=== PATIENT | male | born 1990 | race American Indian/Alaskan Native ===

== ENCOUNTER 2018-03-08 15:09 | Inpatient (IN) | payer OTHER ==
[2018-03-08] MEDS ORDERED: TYLENOL ONE (15:18)
[2018-03-08] MEDS ORDERED: TYLENOL PO ONE (15:19)
--- NOTE | 2018-03-08 17:30 | Emergency Department Report ---
ED Fever HPI - General Chief Complaint: Fever Stated Complaint: HTN, R FOOT PAIN Time Seen by Provider: 03/08/18 17:10 Source: patient Exam Limitations: no limitations - History of Present Illness Initial Comments: This is a 27-year-old -[place] male who presents with fever and body aches that started last night. Patient reports waking up this morning going directly to urgent care around 12:00 today and began seeing directly here for evaluation of blood sugar and blood pressure. Patient reports while in urgent care he was told his blood sugar was too low and his blood pressure elevated. They advised him to follow-up in the emergency room. Patient admits to not eating breakfast this morning because he was nauseous and vomiting last night. Reports symptoms started last night around 2129 with shaking activity. She increase water intake and started drinking Gatorade with no improvement of symptoms. Today he is feverish and fatigued. Denies nausea or vomiting, chest pain, shortness of breath, sore throat, sinus pressure. Timing/Duration: yesterday Fever Severity/Quality: greater than 102 F Fever Therapy CLINICAL EDUCATION COORDINATOR: none Associated Symptoms: muscle aches (generalized body aches). denies: abdominal pain, chest pain, confusion, cough, diaphoresis, headache, nausea/vomiting, rash , shortness of breath, sore throat, stiff neck, syncope, weakness ED Review of Systems ROS: Stated complaint: HTN, R FOOT PAIN Other details as noted in HPI Constitutional: chills, fever, malaise. denies: weakness Respiratory: denies: cough, shortness of breath, wheezing Cardiovascular: denies: chest pain, palpitations Gastrointestinal: denies: abdominal pain, nausea, diarrhea Genitourinary: denies: urgency, dysuria Musculoskeletal: myalgia (generalized body aches). denies: back pain, joint swelling, arthralgia Neurological: denies: headache, weakness, numbness, paresthesias Psychiatric: denies: anxiety, depression ED Past Medical Hx - Past Medical History Previous Medical History?: No - Surgical History Past Surgical History?: No - Social History Smoking Status: Never Smoker Substance Use Type: Alcohol ED Physical Exam - General Limitations: No Limitations General appearance: alert, in no apparent distress, obese - ENT ENT exam: Present: mucous membranes moist, normal external ear exam, other ( turbinates mildly congested) - Neck Neck exam: Present: normal inspection, full ROM. Absent: tenderness, meningismus, lymphadenopathy, thyromegaly - Respiratory Respiratory exam: Present: normal lung sounds bilaterally. Absent: respiratory distress - Cardiovascular Cardiovascular Exam: Present: regular rate, normal rhythm. Absent: systolic murmur, diastolic murmur, rubs, gallop - GI/Abdominal GI/Abdominal exam: Present: soft, normal bowel sounds. Absent: organomegaly, mass - Back Exam Back exam: Present: normal inspection. Absent: CVA tenderness (R), CVA tenderness (L) - Neurological Exam Neurological exam: Present: alert, oriented X3 - Psychiatric Psychiatric exam: Present: normal affect, normal mood - Skin Skin exam: Present: warm, dry, intact, normal color. Absent: rash ED Course Vital Signs 03/08/18 15:16 Temperature 102.2 F H Pulse Rate 81 Respiratory 20 Rate Blood Pressure 122/69 O2 Sat by Pulse 96 Oximetry ED Medical Decision Making - Lab Data Result diagrams: 03/08/18 17:34 03/08/18 17:34 - Medical Decision Making This is a 27 y.o. male presents with a fever and generalized body aches that started last night. Patient is stable and was examined by me. Temperature elevated, patient given Tylenol 975 mg by mouth once while in ER. Obtain CBC and CMP. WBC 21. Ordered chest x-ray, mono, and urinalysis. Labs are pending. Chart signed over to RR. Wendy Critical care attestation.: If time is entered above; I have spent that time in minutes in the direct care of this critically ill patient, excluding procedure time. ED Disposition Clinical Impression: Fever Qualifiers: Fever type: unspecified Qualified Code(s): R50.9 - Fever, unspecified Disposition: - MED SCREENING EXAM-CONT Is pt being admited?: No Condition: Stable Referrals: PRIMARY CARE, [Primary Care Provider] - 3-5 Days
[2018-03-08 17:46] LABS: Hematocrit 42.5 % (35.5-45.6); Hemoglobin 14.5 gm/dl (11.8-15.2); Mean Corpuscular HGB Conc 34 % (32-34); Mean Corpuscular Hemoglobin 32 pg (28-32); Mean Corpuscular Volume 93 fl (84-94); Platelet Count 184 K/mm3 (140-440); Red Blood Count 4.56 M/mm3 (3.65-5.03); Red Cell Distribution Width 12.9 % (13.2-15.2)
[2018-03-08 18:08] LABS: Alanine Aminotransferase 15 units/L (7-56); Albumin 3.9 g/dL (3.9-5); BUN/Creatinine Ratio 10; Blood Urea Nitrogen 13 mg/dL (9-20); Calcium 9.1 mg/dL (8.4-10.2); Hemolysis Index 7
[2018-03-08 19:01] LABS: Bilirubin,Urine NEG (Negative); Blood,Urine SM (Negative); Color,Urine Yellow (Yellow); Mucus,Urine FEW /HPF; Protein,Urine <15 mg/dL mg/dL (Negative); Urobilinogen,Urine < 2.0 mg/dL (<2.0)
[2018-03-08 19:32] LABS: Hematocrit 42.7 % (35.5-45.6); Hemoglobin 14.3 gm/dl (11.8-15.2); Mean Corpuscular HGB Conc 33 % (32-34); Mean Corpuscular Hemoglobin 32 pg (28-32); Mean Corpuscular Volume 95 fl (84-94); Platelet Count 184 K/mm3 (140-440); Red Blood Count 4.52 M/mm3 (3.65-5.03); Red Cell Distribution Width 12.8 % (13.2-15.2)
[2018-03-08 20:14] LABS: Basophils % (Manual) 0 % (0.0-1.8); Total Cells Counted 100
[2018-03-08 20:15] LABS: Band Neutrophils # (Manual) 1.9 K/mm3; Eosinophils % (Manual) 0 % (0.0-4.3); RBC Morphology Normal
--- NOTE | 2018-03-08 20:43 | XRay Report ---
FINAL REPORT PROCEDURE: XR CHEST ROUTINE 2V TECHNIQUE: PA and lateral chest radiographs were obtained. CPT 57389 HISTORY: fever COMPARISON: No prior studies are available for comparison. FINDINGS: Heart: Normal. Mediastinum/Vessels: Normal. Lungs/Pleural space: Normal. Bony thorax: No acute osseous abnormality. Other: IMPRESSION: Normal examination.
[2018-03-08] MEDS ORDERED: MOTRIN ONE (21:08)
[2018-03-08] MEDS ORDERED: MOTRIN PO ONE (21:09)
[2018-03-08] MEDS ORDERED: CLEOCIN 600 MG/50 mL 600 MG/50 ML BAG IV ONE (21:55)
[2018-03-08] MEDS ORDERED: NACL 0.9% 1000 ML 1,000 ML IV ONE (21:55)
--- NOTE | 2018-03-08 22:57 | History and Physical Report ---
History of Present Illness Date of admission: 03/08/18 22:08 Chief complaint: Nausea dizziness fever chills and body aches for one day History of present illness: 27-year-old obese -[place] male with no known medical conditions seen in the ED with above complaints, was noted to have a fever of 102, elevated WBC count and swelling pain and tenderness in the right leg and is being admitted for further management of cellulitis of the right leg He is alert and oriented. He denies any injury Past History Past Medical History: No medical history Past Surgical History: No surgical history Social history: no significant social history Family history: diabetes, hypertension Medications and Allergies Allergies Allergy/AdvReac Type Severity Reaction Status Date / Time No Known Allergies Allergy Unverified 03/08/18 15:15 Home Medications Medication Instructions Recorded Confirmed Last Taken Type Ibuprofen [Motrin] 800 mg PO Q8HR PRN #20 tablet 03/08/18 Unknown Rx Active Meds: Active Medications Sodium Chloride (Nacl 0.9% 1000 Ml) 1,000 mls @ 999 mls/hr IV BOLUS ONE Stop: 03/08/18 22:55 Last Admin: 03/08/18 22:29 Dose: 999 mls/hr Clindamycin HCl (Cleocin 600 Mg/50 Ml) 600 mg in 50 mls @ 100 mls/hr IV Q8HR [facility]; Protocol Review of Systems Constitutional: fever, chills, other (body aches), no weight loss, no fatigue, no weakness Ears, nose, mouth and throat: no ear pain, no ear discharge, no nasal congestion , no sore throat, no headache Cardiovascular: no chest pain, no palpitations, no syncope, no shortness of breath, no high blood pressure Respiratory: no cough, no shortness of breath, no congestion Gastrointestinal: nausea, no abdominal pain, no vomiting, no diarrhea, no constipation, no melena Genitourinary Male: no dysuria, no hematuria, no urinary frequency Rectal: no pain Musculoskeletal: no neck stiffness, no neck pain, no low back pain Integumentary: redness (right ankle and distal part of right leg), no rash Neurological: no head injury, no seizures, no syncope Psychiatric: no anxiety, no depression Endocrine: no excessive thirst, no polyuria Exam - Constitutional Vitals: Temp Pulse Resp BP Pulse Ox 98.9 F 98 H 18 121/70 100 03/08/18 22:19 03/08/18 20:53 03/08/18 21:12 03/08/18 20:53 03/08/18 20:53 General appearance: Present: no acute distress, well-nourished, obese - EENT Eyes: Present: PERRL, EOM intact ENT: hearing intact, clear oral mucosa - Neck Neck: Present: supple, normal ROM. Absent: masses or JVD - Respiratory Respiratory effort: normal Respiratory: bilateral: CTA - Cardiovascular Rhythm: regular Heart Sounds: Present: S1 & S2 - Extremities Extremity abnormal: edema (of right leg distally and over the right ankle), erythema, tenderness Peripheral Pulses: within normal limits - Abdominal General gastrointestinal: Present: soft, non-tender. Absent: hepatomegaly, splenomegaly Male genitourinary: Present: deferred - Rectal Rectal Exam: deferred - Integumentary Integumentary: Present: warm, erythema (right ankle and distal part of right leg ) - Musculoskeletal Musculoskeletal: strength equal bilaterally - Psychiatric Psychiatric: appropriate mood/affect - Neurologic Neurologic: CNII-XII intact, no focal deficits, moves all extremities Results - Labs CBC & Chem 7: 03/08/18 19:13 03/08/18 17:34 Labs: Abnormal lab results 03/08/18 03/08/18 03/08/18 Range/Units 17:34 17:34 19:13 WBC 21.7 H (4.5-11.0) K/mm3 MCV (84-94) fl RDW 12.9 L (13.2-15.2) % Seg Neuts % (Manual) (40.0-70.0) % Lymphocytes % (Manual) (13.4-35.0) % Seg Neutrophils # Man (1.8-7.7) K/mm3 Monocytes # (Manual) (0.0-0.8) K/mm3 Sodium 134 L (137-145) mmol/L Chloride 95.2 L (98-107) mmol/L Glucose 111 H (75-100) mg/dL Total Creatine Kinase 276 H (55-170) units/L 03/08/18 Range/Units 19:13 WBC 19.2 H (4.5-11.0) K/mm3 MCV 95 H (84-94) fl RDW 12.8 L (13.2-15.2) % Seg Neuts % (Manual) 76.0 H (40.0-70.0) % Lymphocytes % (Manual) 8.0 L (13.4-35.0) % Seg Neutrophils # Man 14.6 H (1.8-7.7) K/mm3 Monocytes # (Manual) 1.2 H (0.0-0.8) K/mm3 Sodium (137-145) mmol/L Chloride (98-107) mmol/L Glucose (75-100) mg/dL Total Creatine Kinase (55-170) units/L Assessment and Plan - Patient Problems (1) Cellulitis of right lower leg Current Visit: Yes Status: Acute Plan to address problem: Blood cultures were done in the ED Started on IV antibiotics with clindamycin No evidence of sepsis NSAIDs (2) Neutrophilic leukocytosis Current Visit: Yes Status: Acute Plan to address problem: Secondary to cellulitis We will monitor (3) Morbid obesity with BMI of 40.0-44.9, adult Current Visit: Yes Status: Chronic Plan to address problem: Due to excess calories Counseling done (4) Fever Current Visit: Yes Status: Acute Qualifiers: Fever type: unspecified Qualified Code(s): R50.9 - Fever, unspecified Plan to address problem: Secondary to cellulitis Acetaminophen as needed
[2018-03-09] MEDS ORDERED: VANCOMYCIN 1,750 MG in NACL 0.9% 500 ML 500 ML IV SCH (02:00)
[2018-03-09] MEDS: CLEOCIN 600 MG/50 mL 600 MG/50 ML BAG IV SCH ×2 (05:55→13:06)
[2018-03-09] MEDS: PEPCID PO SCH ×2 (09:37→23:09)
--- NOTE | 2018-03-09 10:09 | Progress Note ---
Assessment and Plan Assessment and plan: --Lower extremity cellulitis Vancomycin, Zosyn, follow cultures, elevate the limb Lower extremity venous Doppler, negative for DVT X-ray right ankle no abnormality noted --Febrile illness; secondary to sepsis Antipyretics, continue antibiotics --Morbid obesity; counseling diet modification and exercise as tolerated And weight reduction when medically stable History Interval history: Patient seen and examined medical records reviewed Admitted with fever and right lower extremity swelling On empiric antibiotics Patient denies any trauma Alert awake oriented 3 Vital signs reviewed Hospitalist Physical - Constitutional Vitals: Temp Pulse Resp BP Pulse Ox 98.8 F 97 H 20 140/77 100 03/09/18 05:12 03/09/18 05:12 03/09/18 05:12 03/09/18 05:12 03/09/18 05:12 General appearance: Present: no acute distress, well-nourished, obese (morbidly obese) - EENT Eyes: Present: PERRL, EOM intact - Neck Neck: Present: supple, normal ROM - Respiratory Respiratory effort: normal Respiratory: bilateral: diminished, negative: rales, rhonchi, wheezing - Cardiovascular Rhythm: regular Heart Sounds: Present: S1 & S2 - Extremities Extremities: no ischemia, pulses intact, pulses symmetrical, abnormal (right lower extremity swelling, warmth, tenderness) - Abdominal General gastrointestinal: soft, non-tender, non-distended, normal bowel sounds - Integumentary Integumentary: Present: clear, warm - Psychiatric Psychiatric: appropriate mood/affect, cooperative - Neurologic Neurologic: CNII-XII intact, moves all extremities Results - Labs CBC & Chem 7: 03/08/18 19:13 03/08/18 17:34 Labs: Laboratory Last Values WBC 19.2 K/mm3 (4.5-11.0) H 03/08/18 19:13 RBC 4.52 M/mm3 (3.65-5.03) 03/08/18 19:13 Hgb 14.3 gm/dl (11.8-15.2) 03/08/18 19:13 Hct 42.7 % (35.5-45.6) 03/08/18 19:13 MCV 95 fl (84-94) H 03/08/18 19:13 MCH 32 pg (28-32) 03/08/18 19:13 MCHC 33 % (32-34) 03/08/18 19:13 RDW 12.8 % (13.2-15.2) L 03/08/18 19:13 Plt Count 184 K/mm3 (140-440) 03/08/18 19:13 Add Manual Diff Complete 03/08/18 19:13 Total Counted 100 03/08/18 19:13 Seg Neutrophils % Basket Weaver 03/08/18 19:13 Seg Neuts % (Manual) 76.0 % (40.0-70.0) H 03/08/18 19:13 Band Neutrophils % 10.0 % 03/08/18 19:13 Lymphocytes % (Manual) 8.0 % (13.4-35.0) L 03/08/18 19:13 Reactive Lymphs % (Man) 0 % 03/08/18 19:13 Monocytes % (Manual) 6.0 % (0.0-7.3) 03/08/18 19:13 Eosinophils % (Manual) 0 % (0.0-4.3) 03/08/18 19:13 Basophils % (Manual) 0 % (0.0-1.8) 03/08/18 19:13 Metamyelocytes % 0 % 03/08/18 19:13 Myelocytes % 0 % 03/08/18 19:13 Promyelocytes % 0 % 03/08/18 19:13 Blast Cells % 0 % 03/08/18 19:13 Nucleated RBC % Not Reportable 03/08/18 19:13 Seg Neutrophils # Man 14.6 K/mm3 (1.8-7.7) H 03/08/18 19:13 Band Neutrophils # 1.9 K/mm3 03/08/18 19:13 Lymphocytes # (Manual) 1.5 K/mm3 (1.2-5.4) 03/08/18 19:13 Abs React Lymphs (Man) 0.0 K/mm3 03/08/18 19:13 Monocytes # (Manual) 1.2 K/mm3 (0.0-0.8) H 03/08/18 19:13 Eosinophils # (Manual) 0.0 K/mm3 (0.0-0.4) 03/08/18 19:13 Basophils # (Manual) 0.0 K/mm3 (0.0-0.1) 03/08/18 19:13 Metamyelocytes # 0.0 K/mm3 03/08/18 19:13 Myelocytes # 0.0 K/mm3 03/08/18 19:13 Promyelocytes # 0.0 K/mm3 03/08/18 19:13 Blast Cells # 0.0 K/mm3 03/08/18 19:13 WBC Morphology Not Reportable 03/08/18 19:13 Hypersegmented Neuts Not Reportable 03/08/18 19:13 Hyposegmented Neuts Not Reportable 03/08/18 19:13 Hypogranular Neuts Not Reportable 03/08/18 19:13 Smudge Cells Not Reportable 03/08/18 19:13 Toxic Granulation Not Reportable 03/08/18 19:13 Toxic Vacuolation Not Reportable 03/08/18 19:13 Dohle Bodies Not Reportable 03/08/18 19:13 Pelger-Huet Anomaly Not Reportable 03/08/18 19:13 Tony Rods Not Reportable 03/08/18 19:13 Platelet Estimate Appears normal 03/08/18 19:13 Clumped Platelets Not Reportable 03/08/18 19:13 Plt Clumps, EDTA Not Reportable 03/08/18 19:13 Large Platelets Not Reportable 03/08/18 19:13 Giant Platelets Not Reportable 03/08/18 19:13 Platelet Satelliting Not Reportable 03/08/18 19:13 Plt Morphology Comment Not Reportable 03/08/18 19:13 RBC Morphology Normal 03/08/18 19:13 Dimorphic RBCs Not Reportable 03/08/18 19:13 Polychromasia Not Reportable 03/08/18 19:13 Hypochromasia Not Reportable 03/08/18 19:13 Poikilocytosis Not Reportable 03/08/18 19:13 Anisocytosis Not Reportable 03/08/18 19:13 Microcytosis Not Reportable 03/08/18 19:13 Macrocytosis Not Reportable 03/08/18 19:13 Spherocytes Not Reportable 03/08/18 19:13 Pappenheimer Bodies Not Reportable 03/08/18 19:13 Sickle Cells Not Reportable 03/08/18 19:13 Target Cells Not Reportable 03/08/18 19:13 Tear Drop Cells Not Reportable 03/08/18 19:13 Ovalocytes Not Reportable 03/08/18 19:13 Helmet Cells Not Reportable 03/08/18 19:13 [place] Bodies Not Reportable 03/08/18 19:13 [place] Rings Not Reportable 03/08/18 19:13 [place] Cells Not Reportable 03/08/18 19:13 Bite Cells Not Reportable 03/08/18 19:13 Crenated Cell Not Reportable 03/08/18 19:13 Elliptocytes Not Reportable 03/08/18 19:13 Acanthocytes (Spur) Not Reportable 03/08/18 19:13 Rouleaux Not Reportable 03/08/18 19:13 Hemoglobin C Crystals Not Reportable 03/08/18 19:13 Schistocytes Not Reportable 03/08/18 19:13 Malaria parasites Not Reportable 03/08/18 19:13 Glen Bodies Not Reportable 03/08/18 19:13 Hem Pathologist Commnt No 03/08/18 19:13 D-Dimer 181.26 ng/mlDDU (0-234) 03/08/18 22:15 Sodium 134 mmol/L (137-145) L 03/08/18 17:34 Potassium 3.6 mmol/L (3.6-5.0) 03/08/18 17:34 Chloride 95.2 mmol/L (98-107) L 03/08/18 17:34 Carbon Dioxide 23 mmol/L (22-30) 03/08/18 17:34 Anion Gap 19 mmol/L 03/08/18 17:34 BUN 13 mg/dL (9-20) 03/08/18 17:34 Creatinine 1.3 mg/dL (0.8-1.5) 03/08/18 17:34 Estimated GFR > 60 ml/min 03/08/18 17:34 BUN/Creatinine Ratio 10 % 03/08/18 17:34 Glucose 111 mg/dL (75-100) H 03/08/18 17:34 Lactic Acid 1.10 mmol/L (0.7-2.0) 03/08/18 19:13 Calcium 9.1 mg/dL (8.4-10.2) 03/08/18 17:34 Total Bilirubin 1.20 mg/dL (0.1-1.2) 03/08/18 17:34 AST 19 units/L (5-40) 03/08/18 17:34 ALT 15 units/L (7-56) 03/08/18 17:34 Alkaline Phosphatase 59 units/L (35-129) 03/08/18 17:34 Total Creatine Kinase 276 units/L (55-170) H 03/08/18 19:13 Total Protein 7.7 g/dL (6.3-8.2) 03/08/18 17:34 Albumin 3.9 g/dL (3.9-5) 03/08/18 17:34 Albumin/Globulin Ratio 1.0 % 03/08/18 17:34 Urine Color Yellow (Yellow) 03/08/18 18:49 Urine Turbidity Clear (Clear) 03/08/18 18:49 Urine pH 5.0 (5.0-7.0) 03/08/18 18:49 Ur Specific Moran 1.014 (1.003-1.030) 03/08/18 18:49 Urine Protein <15 mg/dl mg/dL (Negative) 03/08/18 18:49 Urine Glucose (UA) Neg mg/dL (Negative) 03/08/18 18:49 Urine Ketones Neg mg/dL (Negative) 03/08/18 18:49 Urine Blood Sm (Negative) 03/08/18 18:49 Urine Nitrite Neg (Negative) 03/08/18 18:49 Urine Bilirubin Neg (Negative) 03/08/18 18:49 Urine Urobilinogen < 2.0 mg/dL (<2.0) 03/08/18 18:49 Ur Leukocyte Esterase Neg (Negative) 03/08/18 18:49 Urine WBC (Auto) 5.0 /HPF (0.0-6.0) 03/08/18 18:49 Urine RBC (Auto) 2.0 /HPF (0.0-6.0) 03/08/18 18:49 U Epithel Cells (Auto) < 1.0 /HPF (0-13.0) 03/08/18 18:49 Urine Mucus Few /HPF 03/08/18 18:49 Monoscreen Negative (Negative) 03/08/18 19:13
--- NOTE | 2018-03-09 12:00 | XRay Report ---
FINAL REPORT EXAM: XR ANKLE 3+V RT HISTORY: swelling and pain TECHNIQUE: Three views right ankle. PRIORS: None currently available. FINDINGS: There is no acute fracture. There is no evidence for healing fracture. There is no acute dislocation. Joints in anatomical position. No significant arthrosis. There is no cortical destruction to suggest osteomyelitis. There are no suspicious osseous lesions. There are no radiopaque foreign objects. Soft tissue swelling. IMPRESSION: No acute osseous findings.
[2018-03-09] MEDS: TYLENOL PO PRN ×2 (13:05→23:09)
[2018-03-09] MEDS ORDERED: VANCOMYCIN 2,000 MG in NACL 0.9% 500 ML 500 ML IV ONE (14:00)
[2018-03-09] MEDS ORDERED: VANCOMYCIN PHARMACY TO DOSE IV SCH ×2 (14:00)
[2018-03-09] MEDS ORDERED: VANCOMYCIN/NS 1 GM/250 ML 1 GM/250 ML BAG IV SCH (14:00)
[2018-03-09] MEDS: ZOSYN/NS 4.5GM/100ML 4.5 GM/100 ML VIAL IV SCH ×2 (19:32→23:00)
[2018-03-09] MEDS: LOVENOX SUB-Q SCH (23:08)
[2018-03-10] MEDS: VANCOMYCIN 1,750 MG in NACL 0.9% 500 ML 500 ML IV SCH ×2 (02:20→16:00)
[2018-03-10] MEDS: ZOSYN/NS 4.5GM/100ML 4.5 GM/100 ML VIAL IV SCH ×3 (06:40→23:09)
[2018-03-10] MEDS: PEPCID PO SCH ×2 (09:53→23:09)
--- NOTE | 2018-03-10 16:04 | Progress Note ---
Assessment and Plan Assessment and plan: --Lower extremity cellulitis Continue Vancomycin, Zosyn, follow cultures, elevate the limb Lower extremity venous Doppler, negative for DVT X-ray right ankle no abnormality noted --Febrile illness; secondary to sepsis The patient is afebrile last 24 hours Continue Antipyretics, antibiotics and supportive care --Morbid obesity; BMI 43.2 counseling ,diet modification and exercise as tolerated And weight reduction when medically stable --DVT prophylaxis Lovenox Closely monitor the patient and adjust management as needed History Interval history: Patient seen and examined in his room this morning medical records reviewed Right lower extremity swelling slightly improved Patient is afebrile alert awake oriented 3 No new complaints On IV antibiotics for sepsis Hospitalist Physical - Constitutional Vitals: Temp Pulse Resp BP Pulse Ox 99.3 F 77 16 110/72 98 03/10/18 11:59 03/10/18 11:59 03/10/18 11:59 03/10/18 11:59 03/10/18 11:59 General appearance: Present: no acute distress, well-nourished, obese (morbidly obese) - EENT Eyes: Present: PERRL, EOM intact - Neck Neck: Present: supple, normal ROM - Respiratory Respiratory effort: normal Respiratory: bilateral: diminished, negative: rales, rhonchi, wheezing - Cardiovascular Rhythm: regular Heart Sounds: Present: S1 & S2 - Extremities Extremities: no ischemia, No edema, abnormal (right lower extremity swelling, no tenderness no redness) - Abdominal General gastrointestinal: soft, non-tender, non-distended - Integumentary Integumentary: Present: clear, warm - Psychiatric Psychiatric: appropriate mood/affect, cooperative - Neurologic Neurologic: CNII-XII intact, moves all extremities Results - Labs CBC & Chem 7: 03/08/18 19:13 03/08/18 17:34 Labs: Laboratory Last Values WBC 19.2 K/mm3 (4.5-11.0) H 03/08/18 19:13 RBC 4.52 M/mm3 (3.65-5.03) 03/08/18 19:13 Hgb 14.3 gm/dl (11.8-15.2) 03/08/18 19:13 Hct 42.7 % (35.5-45.6) 03/08/18 19:13 MCV 95 fl (84-94) H 03/08/18 19:13 MCH 32 pg (28-32) 03/08/18 19:13 MCHC 33 % (32-34) 03/08/18 19:13 RDW 12.8 % (13.2-15.2) L 03/08/18 19:13 Plt Count 184 K/mm3 (140-440) 03/08/18 19:13 Add Manual Diff Complete 03/08/18 19:13 Total Counted 100 03/08/18 19:13 Seg Neutrophils % Finisher Card Tender 03/08/18 19:13 Seg Neuts % (Manual) 76.0 % (40.0-70.0) H 03/08/18 19:13 Band Neutrophils % 10.0 % 03/08/18 19:13 Lymphocytes % (Manual) 8.0 % (13.4-35.0) L 03/08/18 19:13 Reactive Lymphs % (Man) 0 % 03/08/18 19:13 Monocytes % (Manual) 6.0 % (0.0-7.3) 03/08/18 19:13 Eosinophils % (Manual) 0 % (0.0-4.3) 03/08/18 19:13 Basophils % (Manual) 0 % (0.0-1.8) 03/08/18 19:13 Metamyelocytes % 0 % 03/08/18 19:13 Myelocytes % 0 % 03/08/18 19:13 Promyelocytes % 0 % 03/08/18 19:13 Blast Cells % 0 % 03/08/18 19:13 Nucleated RBC % Not Reportable 03/08/18 19:13 Seg Neutrophils # Man 14.6 K/mm3 (1.8-7.7) H 03/08/18 19:13 Band Neutrophils # 1.9 K/mm3 03/08/18 19:13 Lymphocytes # (Manual) 1.5 K/mm3 (1.2-5.4) 03/08/18 19:13 Abs React Lymphs (Man) 0.0 K/mm3 03/08/18 19:13 Monocytes # (Manual) 1.2 K/mm3 (0.0-0.8) H 03/08/18 19:13 Eosinophils # (Manual) 0.0 K/mm3 (0.0-0.4) 03/08/18 19:13 Basophils # (Manual) 0.0 K/mm3 (0.0-0.1) 03/08/18 19:13 Metamyelocytes # 0.0 K/mm3 03/08/18 19:13 Myelocytes # 0.0 K/mm3 03/08/18 19:13 Promyelocytes # 0.0 K/mm3 03/08/18 19:13 Blast Cells # 0.0 K/mm3 03/08/18 19:13 WBC Morphology Not Reportable 03/08/18 19:13 Hypersegmented Neuts Not Reportable 03/08/18 19:13 Hyposegmented Neuts Not Reportable 03/08/18 19:13 Hypogranular Neuts Not Reportable 03/08/18 19:13 Smudge Cells Not Reportable 03/08/18 19:13 Toxic Granulation Not Reportable 03/08/18 19:13 Toxic Vacuolation Not Reportable 03/08/18 19:13 Dohle Bodies Not Reportable 03/08/18 19:13 Pelger-Huet Anomaly Not Reportable 03/08/18 19:13 [place] Rods Not Reportable 03/08/18 19:13 Platelet Estimate Appears normal 03/08/18 19:13 Clumped Platelets Not Reportable 03/08/18 19:13 Plt Clumps, EDTA Not Reportable 03/08/18 19:13 Large Platelets Not Reportable 03/08/18 19:13 Giant Platelets Not Reportable 03/08/18 19:13 Platelet Satelliting Not Reportable 03/08/18 19:13 Plt Morphology Comment Not Reportable 03/08/18 19:13 RBC Morphology Normal 03/08/18 19:13 Dimorphic RBCs Not Reportable 03/08/18 19:13 Polychromasia Not Reportable 03/08/18 19:13 Hypochromasia Not Reportable 03/08/18 19:13 Poikilocytosis Not Reportable 03/08/18 19:13 Anisocytosis Not Reportable 03/08/18 19:13 Microcytosis Not Reportable 03/08/18 19:13 Macrocytosis Not Reportable 03/08/18 19:13 Spherocytes Not Reportable 03/08/18 19:13 Pappenheimer Bodies Not Reportable 03/08/18 19:13 Sickle Cells Not Reportable 03/08/18 19:13 Target Cells Not Reportable 03/08/18 19:13 Tear Drop Cells Not Reportable 03/08/18 19:13 Ovalocytes Not Reportable 03/08/18 19:13 Helmet Cells Not Reportable 03/08/18 19:13 [place] Bodies Not Reportable 03/08/18 19:13 [place] Rings Not Reportable 03/08/18 19:13 Juan M Cells Not Reportable 03/08/18 19:13 Bite Cells Not Reportable 03/08/18 19:13 Crenated Cell Not Reportable 03/08/18 19:13 Elliptocytes Not Reportable 03/08/18 19:13 Acanthocytes (Spur) Not Reportable 03/08/18 19:13 Rouleaux Not Reportable 03/08/18 19:13 Hemoglobin C Crystals Not Reportable 03/08/18 19:13 Schistocytes Not Reportable 03/08/18 19:13 Malaria parasites Not Reportable 03/08/18 19:13 Glen Bodies Not Reportable 03/08/18 19:13 Hem Pathologist Commnt No 03/08/18 19:13 D-Dimer 181.26 ng/mlDDU (0-234) 03/08/18 22:15 Sodium 134 mmol/L (137-145) L 03/08/18 17:34 Potassium 3.6 mmol/L (3.6-5.0) 03/08/18 17:34 Chloride 95.2 mmol/L (98-107) L 03/08/18 17:34 Carbon Dioxide 23 mmol/L (22-30) 03/08/18 17:34 Anion Gap 19 mmol/L 03/08/18 17:34 BUN 13 mg/dL (9-20) 03/08/18 17:34 Creatinine 1.3 mg/dL (0.8-1.5) 03/08/18 17:34 Estimated GFR > 60 ml/min 03/08/18 17:34 BUN/Creatinine Ratio 10 % 03/08/18 17:34 Glucose 111 mg/dL (75-100) H 03/08/18 17:34 Lactic Acid 1.10 mmol/L (0.7-2.0) 03/08/18 19:13 Calcium 9.1 mg/dL (8.4-10.2) 07/06/18 17:34 Total Bilirubin 1.20 mg/dL (0.1-1.2) 03/08/18 17:34 AST 19 units/L (5-40) 03/08/18 17:34 ALT 15 units/L (7-56) 03/08/18 17:34 Alkaline Phosphatase 59 units/L (35-129) 03/08/18 17:34 Total Creatine Kinase 276 units/L (55-170) H 03/08/18 19:13 Total Protein 7.7 g/dL (6.3-8.2) 03/08/18 17:34 Albumin 3.9 g/dL (3.9-5) 03/08/18 17:34 Albumin/Globulin Ratio 1.0 % 03/08/18 17:34 Urine Color Yellow (Yellow) 03/08/18 18:49 Urine Turbidity Clear (Clear) 03/08/18 18:49 Urine pH 5.0 (5.0-7.0) 03/08/18 18:49 Ur Specific [place] 1.014 (1.003-1.030) 03/08/18 18:49 Urine Protein <15 mg/dl mg/dL (Negative) 03/08/18 18:49 Urine Glucose (UA) Neg mg/dL (Negative) 03/08/18 18:49 Urine Ketones Neg mg/dL (Negative) 03/08/18 18:49 Urine Blood Sm (Negative) 03/08/18 18:49 Urine Nitrite Neg (Negative) 03/08/18 18:49 Urine Bilirubin Neg (Negative) 03/08/18 18:49 Urine Urobilinogen < 2.0 mg/dL (<2.0) 03/08/18 18:49 Ur Leukocyte Esterase Neg (Negative) 03/08/18 18:49 Urine WBC (Auto) 5.0 /HPF (0.0-6.0) 03/08/18 18:49 Urine RBC (Auto) 2.0 /HPF (0.0-6.0) 03/08/18 18:49 U Epithel Cells (Auto) < 1.0 /HPF (0-13.0) 03/08/18 18:49 Urine Mucus Few /HPF 03/08/18 18:49 Monoscreen Negative (Negative) 03/08/18 19:13
[2018-03-10] MEDS: LOVENOX SUB-Q SCH (23:09)
[2018-03-11] MEDS: VANCOMYCIN 1,750 MG in NACL 0.9% 500 ML 500 ML IV SCH ×2 (02:32→15:58)
[2018-03-11] MEDS: ZOSYN/NS 4.5GM/100ML 4.5 GM/100 ML VIAL IV SCH ×3 (05:48→23:47)
[2018-03-11 07:15] LABS: Basophils % (Auto) 0.5 % (0.0-1.8); Eosinophils # (Auto) 0.1 K/mm3 (0.0-0.4); Eosinophils % (Auto) 2.9 % (0.0-4.3); Hematocrit 38.1 % (35.5-45.6); Hemoglobin 12.9 gm/dl (11.8-15.2); Lymphocytes # (Auto) 1.5 K/mm3 (1.2-5.4); Lymphocytes % (Auto) 32.7 % (13.4-35.0); Mean Corpuscular HGB Conc 34 % (32-34); Mean Corpuscular Hemoglobin 32 pg (28-32); Mean Corpuscular Volume 94 fl (84-94); Monocytes # (Auto) 0.6 K/mm3 (0.0-0.8); Monocytes % (Auto) 13.5 % (0.0-7.3); Platelet Count 180 K/mm3 (140-440); Red Blood Count 4.05 M/mm3 (3.65-5.03)
[2018-03-11 07:39] LABS: Alanine Aminotransferase 11 units/L (7-56); Albumin 3.2 g/dL (3.9-5); BUN/Creatinine Ratio 5; Blood Urea Nitrogen 6 mg/dL (9-20); Calcium 8.7 mg/dL (8.4-10.2); Hemolysis Index 3
[2018-03-11] MEDS: PEPCID PO SCH ×2 (10:57→23:47)
--- NOTE | 2018-03-11 16:37 | Progress Note ---
Assessment and Plan Assessment and plan: --Right Lower extremity cellulitis Swelling slightly improved ,Continue Vancomycin, Zosyn, follow cultures, elevate the limb, Doppler negative for DVT X-ray right ankle no abnormality noted --Cultures positive for gram-negative rods, follow sensitivities ID evaluation if needed --Febrile illness; secondary to sepsis, afebrile last 24 hours Continue Antipyretics, antibiotics and supportive care --Morbid obesity; BMI 43.2 counseling ,diet modification and exercise as tolerated And weight reduction when medically stable --DVT prophylaxis Lovenox Closely monitor the patient and adjust management as needed History Interval history: Patient seen and examined medical records reviewed right lower extremity swelling significantly improved Patient is afebrile, no new complaints On IV antibiotics, Vital signs noted Hospitalist Physical - Constitutional Vitals: Temp Pulse Resp BP Pulse Ox 98.4 F 65 18 152/84 93 03/11/18 12:40 03/11/18 12:40 03/11/18 12:40 03/11/18 12:40 03/11/18 12:40 General appearance: Present: no acute distress, well-nourished, obese (morbidly obese) - EENT Eyes: Present: PERRL, EOM intact - Neck Neck: Present: supple, normal ROM - Respiratory Respiratory effort: normal Respiratory: bilateral: diminished, negative: rales, rhonchi, wheezing - Cardiovascular Rhythm: regular Heart Sounds: Present: S1 & S2 - Extremities Extremities: no ischemia Extremity abnormal: edema - Abdominal General gastrointestinal: soft, non-tender, non-distended, normal bowel sounds - Integumentary Integumentary: Present: clear, warm - Psychiatric Psychiatric: appropriate mood/affect, cooperative - Neurologic Neurologic: CNII-XII intact, moves all extremities Results - Labs CBC & Chem 7: 03/11/18 06:39 03/11/18 06:39 Labs: Laboratory Last Values WBC 4.6 K/mm3 (4.5-11.0) 03/11/18 06:39 RBC 4.05 M/mm3 (3.65-5.03) 03/11/18 06:39 Hgb 12.9 gm/dl (11.8-15.2) 03/11/18 06:39 Hct 38.1 % (35.5-45.6) 03/11/18 06:39 MCV 94 fl (84-94) 03/11/18 06:39 MCH 32 pg (28-32) 03/11/18 06:39 MCHC 34 % (32-34) 03/11/18 06:39 RDW 13.0 % (13.2-15.2) L 03/11/18 06:39 Plt Count 180 K/mm3 (140-440) 03/11/18 06:39 Lymph % (Auto) 32.7 % (13.4-35.0) 03/11/18 06:39 [place] % (Auto) 13.5 % (0.0-7.3) H 03/11/18 06:39 Eos % (Auto) 2.9 % (0.0-4.3) 03/11/18 06:39 Baso % (Auto) 0.5 % (0.0-1.8) 03/11/18 06:39 Lymph # 1.5 K/mm3 (1.2-5.4) 03/11/18 06:39 [place] # 0.6 K/mm3 (0.0-0.8) 03/11/18 06:39 Eos # 0.1 K/mm3 (0.0-0.4) 03/11/18 06:39 Baso # 0.0 K/mm3 (0.0-0.1) 03/11/18 06:39 Add Manual Diff Complete 03/08/18 19:13 Total Counted 100 03/08/18 19:13 Seg Neutrophils % 50.4 % (40.0-70.0) 03/11/18 06:39 Seg Neuts % (Manual) 76.0 % (40.0-70.0) H 03/08/18 19:13 Band Neutrophils % 10.0 % 03/08/18 19:13 Lymphocytes % (Manual) 8.0 % (13.4-35.0) L 03/08/18 19:13 Reactive Lymphs % (Man) 0 % 03/08/18 19:13 Monocytes % (Manual) 6.0 % (0.0-7.3) 03/08/18 19:13 Eosinophils % (Manual) 0 % (0.0-4.3) 03/08/18 19:13 Basophils % (Manual) 0 % (0.0-1.8) 03/08/18 19:13 Metamyelocytes % 0 % 03/08/18 19:13 Myelocytes % 0 % 03/08/18 19:13 Promyelocytes % 0 % 03/08/18 19:13 Blast Cells % 0 % 03/08/18 19:13 Nucleated RBC % Not Reportable 03/08/18 19:13 Seg Neutrophils # 2.3 K/mm3 (1.8-7.7) 03/11/18 06:39 Seg Neutrophils # Man 14.6 K/mm3 (1.8-7.7) H 03/08/18 19:13 Band Neutrophils # 1.9 K/mm3 03/08/18 19:13 Lymphocytes # (Manual) 1.5 K/mm3 (1.2-5.4) 03/08/18 19:13 Abs React Lymphs (Man) 0.0 K/mm3 03/08/18 19:13 Monocytes # (Manual) 1.2 K/mm3 (0.0-0.8) H 03/08/18 19:13 Eosinophils # (Manual) 0.0 K/mm3 (0.0-0.4) 03/08/18 19:13 Basophils # (Manual) 0.0 K/mm3 (0.0-0.1) 03/08/18 19:13 Metamyelocytes # 0.0 K/mm3 03/08/18 19:13 Myelocytes # 0.0 K/mm3 03/08/18 19:13 Promyelocytes # 0.0 K/mm3 03/08/18 19:13 Blast Cells # 0.0 K/mm3 03/08/18 19:13 WBC Morphology Not Reportable 03/08/18 19:13 Hypersegmented Neuts Not Reportable 03/08/18 19:13 Hyposegmented Neuts Not Reportable 03/08/18 19:13 Hypogranular Neuts Not Reportable 03/08/18 19:13 Smudge Cells Not Reportable 03/08/18 19:13 Toxic Granulation Not Reportable 03/08/18 19:13 Toxic Vacuolation Not Reportable 03/08/18 19:13 Dohle Bodies Not Reportable 03/08/18 19:13 Pelger-Huet Anomaly Not Reportable 03/08/18 19:13 [place] Rods Not Reportable 03/08/18 19:13 Platelet Estimate Appears normal 03/08/18 19:13 Clumped Platelets Not Reportable 03/08/18 19:13 Plt Clumps, EDTA Not Reportable 03/08/18 19:13 Large Platelets Not Reportable 03/08/18 19:13 Giant Platelets Not Reportable 03/08/18 19:13 Platelet Satelliting Not Reportable 03/08/18 19:13 Plt Morphology Comment Not Reportable 03/08/18 19:13 RBC Morphology Normal 03/08/18 19:13 Dimorphic RBCs Not Reportable 03/08/18 19:13 Polychromasia Not Reportable 03/08/18 19:13 Hypochromasia Not Reportable 03/08/18 19:13 Poikilocytosis Not Reportable 03/08/18 19:13 Anisocytosis Not Reportable 03/08/18 19:13 Microcytosis Not Reportable 03/08/18 19:13 Macrocytosis Not Reportable 03/08/18 19:13 Spherocytes Not Reportable 03/08/18 19:13 Pappenheimer Bodies Not Reportable 03/08/18 19:13 Sickle Cells Not Reportable 03/08/18 19:13 Target Cells Not Reportable 03/08/18 19:13 Tear Drop Cells Not Reportable 03/08/18 19:13 Ovalocytes Not Reportable 03/08/18 19:13 Helmet Cells Not Reportable 03/08/18 19:13 Griffith-[place] Bodies Not Reportable 03/08/18 19:13 [place] Rings Not Reportable 03/08/18 19:13 Juan M Cells Not Reportable 03/08/18 19:13 Bite Cells Not Reportable 03/08/18 19:13 Crenated Cell Not Reportable 03/08/18 19:13 Elliptocytes Not Reportable 03/08/18 19:13 Acanthocytes (Spur) Not Reportable 03/08/18 19:13 Rouleaux Not Reportable 03/08/18 19:13 Hemoglobin C Crystals Not Reportable 03/08/18 19:13 Schistocytes Not Reportable 03/08/18 19:13 Malaria parasites Not Reportable 03/08/18 19:13 Glen Bodies Not Reportable 03/08/18 19:13 Hem Pathologist Commnt No 03/08/18 19:13 D-Dimer 181.26 ng/mlDDU (0-234) 03/08/18 22:15 Sodium 139 mmol/L (137-145) 03/11/18 06:39 Potassium 3.7 mmol/L (3.6-5.0) 03/11/18 06:39 Chloride 101.4 mmol/L (98-107) 03/11/18 06:39 Carbon Dioxide 25 mmol/L (22-30) 03/11/18 06:39 Anion Gap 16 mmol/L 03/11/18 06:39 BUN 6 mg/dL (9-20) L 03/11/18 06:39 Creatinine 1.1 mg/dL (0.8-1.5) 03/11/18 06:39 Estimated GFR > 60 ml/min 03/11/18 06:39 BUN/Creatinine Ratio 5 % 03/11/18 06:39 Glucose 92 mg/dL (75-100) 03/11/18 06:39 Lactic Acid 1.10 mmol/L (0.7-2.0) 03/08/18 19:13 Calcium 8.7 mg/dL (8.4-10.2) 03/11/18 06:39 Magnesium 1.90 mg/dL (1.7-2.3) 03/11/18 06:39 Total Bilirubin 0.90 mg/dL (0.1-1.2) 03/11/18 06:39 AST 12 units/L (5-40) 03/11/18 06:39 ALT 11 units/L (7-56) 03/11/18 06:39 Alkaline Phosphatase 41 units/L (35-129) 03/11/18 06:39 Total Creatine Kinase 276 units/L (55-170) H 03/08/18 19:13 Total Protein 6.4 g/dL (6.3-8.2) 03/11/18 06:39 Albumin 3.2 g/dL (3.9-5) L 03/11/18 06:39 Albumin/Globulin Ratio 1.0 % 03/11/18 06:39 Urine Color Yellow (Yellow) 03/08/18 18:49 Urine Turbidity Clear (Clear) 03/08/18 18:49 Urine pH 5.0 (5.0-7.0) 03/08/18 18:49 Ur Specific [place] 1.014 (1.003-1.030) 03/08/18 18:49 Urine Protein <15 mg/dl mg/dL (Negative) 03/08/18 18:49 Urine Glucose (UA) Neg mg/dL (Negative) 03/08/18 18:49 Urine Ketones Neg mg/dL (Negative) 03/08/18 18:49 Urine Blood Sm (Negative) 03/08/18 18:49 Urine Nitrite Neg (Negative) 03/08/18 18:49 Urine Bilirubin Neg (Negative) 03/08/18 18:49 Urine Urobilinogen < 2.0 mg/dL (<2.0) 03/08/18 18:49 Ur Leukocyte Esterase Neg (Negative) 03/08/18 18:49 Urine WBC (Auto) 5.0 /HPF (0.0-6.0) 03/08/18 18:49 Urine RBC (Auto) 2.0 /HPF (0.0-6.0) 03/08/18 18:49 U Epithel Cells (Auto) < 1.0 /HPF (0-13.0) 03/08/18 18:49 Urine Mucus Few /HPF 03/08/18 18:49 Monoscreen Negative (Negative) 03/08/18 19:13
[2018-03-11] MEDS: LOVENOX SUB-Q SCH (23:46)
[2018-03-12] MEDS: VANCOMYCIN 1,750 MG in NACL 0.9% 500 ML 500 ML IV SCH (01:45)
[2018-03-12 06:03] VITALS: BP 124/80
[2018-03-12] MEDS: ZOSYN/NS 4.5GM/100ML 4.5 GM/100 ML VIAL IV SCH (06:10)
[2018-03-12] MEDS ORDERED: LEVAQUIN PO SCH (11:00)
[2018-03-12] MEDS: PEPCID PO SCH (11:11)
--- NOTE | 2018-03-12 13:39 | Discharge Summary ---
Providers - Providers Date of Admission: 03/08/18 22:08 Date of discharge: 03/12/18 Attending physician: DANA TEAGUE Primary care physician: [facility]NAGER Hospitalization Reason for admission: right lower extremity swelling tenderness and fever Condition: Stable Pertinent studies: Lower extremity venous Doppler; negative for DVT Right ankle x-ray; no acute abnormality noted Procedures: That cultures one in 4 Enterobacter origins Hospital course: Very pleasant morbidly obese 27-year-old male patient was admitted through emergency room with right lower extremity swelling,Tenderness as well as fever Patient was admitted as cellulitis started on empiric antibiotics Had lower extremity venous Doppler negative for DVT Ankle x-ray which was negative for any acute abnormality Blood cultures were positive for gram-negative organisms Initially started on Vanco Zosyn, later changed to Levaquin Elevated than they've been managed with supportive care Patient symptoms significantly improved Afebrile last 48 hours, swelling significantly improved Today patient is comfortable in bed no new complaints Vital signs reviewed Physical examination prior to discharge did not show any new changes Recommend 2 days work excuse Advised to follow with primary care physician/[place] [facility] for further evaluation and management Will be discharged on Cipro for 10 days Patient is stable at the time of discharge Discharge diagnosis; --Right Lower extremity cellulitis --Cultures positive for gram-negative rods, follow sensitivities --Febrile illness; secondary to sepsis, resolved --Morbid obesity; BMI 43.2 counseling ,diet modification and exercise as tolerated --DVT prophylaxis Lovenox Patient is hemodynamically and clinically stable at discharge Disposition: [place]-01 TO HOME OR SELFCARE Time spent for discharge: 32 min Core Measure Documentation - Palliative Care Palliative Care/ Comfort Measures: Not Applicable - Core Measures Any of the following diagnoses?: none Exam - Constitutional Vitals: Temp Pulse Resp BP Pulse Ox 98.6 F 74 16 124/80 97 03/12/18 05:41 03/12/18 05:41 03/12/18 05:41 03/12/18 05:41 03/12/18 05:41 General appearance: Present: no acute distress, well-nourished - EENT Eyes: Present: PERRL, EOM intact - Neck Neck: Present: supple, normal ROM - Respiratory Respiratory effort: normal Respiratory: negative: rales, rhonchi, wheezing - Cardiovascular Rhythm: regular Heart Sounds: Present: S1 & S2 - Extremities Extremities: no ischemia, No edema, abnormal - Abdominal General gastrointestinal: Present: soft, non-tender, non-distended, normal bowel sounds - Integumentary Integumentary: Present: clear, warm - Musculoskeletal Musculoskeletal: strength equal bilaterally - Psychiatric Psychiatric: appropriate mood/affect, cooperative - Neurologic Neurologic: CNII-XII intact, moves all extremities Plan Activity: advance as tolerated Diet: regular Additional Instructions: With primary care physician/[facility] in one week. Advised 2 days work excuse Follow up with: [facility] [Provider Group] - 3-5 Days PATRIZIA CALDERON MD [Staff Physician] - 3-5 Days Forms: Accompanied Note, Work/School Release Form(ED) Prescriptions: Ciprofloxacin HCl [Ciprofloxacin TAB] 500 mg PO Q12H #20 tab Ibuprofen [Motrin] 800 mg PO Q8HR PRN #20 tablet PRN Reason: Fever >101
== END 2018-03-12 16:00 | disposition home or self-care (01) | DRG 872 ==
LOC: ED 15:09 → 3A 22:08
PROVIDERS: ADMIT Internal Medicine; ATTEND Internal Medicine
DX: A41.9 Sepsis, unspecified organism (principal); L03.115 Cellulitis of right lower limb; Z68.41 Body mass index [BMI] 40.0-44.9, adult; D72.828 Other elevated white blood cell count; E66.01 Morbid (severe) obesity due to excess calories; Z71.3 Dietary counseling and surveillance; Z82.49 Family history of ischemic heart disease and other diseases of the circulatory system; Z83.3 Family history of diabetes mellitus; Z72.89 Other problems related to lifestyle
CPT/HCPCS: 36415; 71046; 80053; 81001; 82140; 82550; 83735; 85007; 85025; 85027; 85379; 86308; 87040; 87076; 87086; 87186; 96365; J1650; J2543; J3370; J7030; J7040

== ENCOUNTER 2018-05-24 14:18 | Emergency (ER) | payer SELFPAY ==
[2018-05-24] MEDS ORDERED: NACL 0.9% 500 ML 500 ML IV ONE (14:41)
[2018-05-24] MEDS ORDERED: TYLENOL PO ONE (14:46)
[2018-05-24] MEDS ORDERED: TYLENOL ONE (14:50)
--- NOTE | 2018-05-24 15:10 | XRay Report ---
PA and lateral chest: Fever, possible sepsis. There is a dextroscoliosis of the thoracic spine. The bony structures and soft tissues are not otherwise remarkable. The lungs are clear. The heart is normal in size and contour. No vascular congestion. No interval changes when compared to prior examination of March 08, 2018. Impression: No acute finding. No evidence of pneumonia.
[2018-05-24 15:32] LABS: Hematocrit 40.2 % (35.5-45.6); Hemoglobin 13.7 gm/dl (11.8-15.2); Mean Corpuscular HGB Conc 34 % (32-34); Mean Corpuscular Hemoglobin 32 pg (28-32); Mean Corpuscular Volume 94 fl (84-94); Platelet Count 213 K/mm3 (140-440); Red Blood Count 4.27 M/mm3 (3.65-5.03); Red Cell Distribution Width 13.5 % (13.2-15.2)
[2018-05-24 15:58] LABS: Alanine Aminotransferase 37 units/L (7-56); BUN/Creatinine Ratio 8; Blood Urea Nitrogen 9 mg/dL (9-20); Calcium 8.9 mg/dL (8.4-10.2); Hemolysis Index 6
[2018-05-24 15:59] LABS: INR 1.19 (0.87-1.13)
[2018-05-24 16:24] LABS: Basophils % (Manual) 0 % (0.0-1.8); Eosinophils % (Manual) 0 % (0.0-4.3); Total Cells Counted 100
[2018-05-24 16:25] LABS: RBC Morphology Normal
[2018-05-24 16:39] LABS: Bacteria,Urine 1+ /HPF (Negative); Bilirubin,Urine NEG (Negative); Blood,Urine LG (Negative); Color,Urine Yellow (Yellow)
[2018-05-24 16:40] LABS: WBC,Urine > 182.0 /HPF (0.0-6.0)
[2018-05-24] MEDS ORDERED: NACL 0.9% 1000 ML 1,000 ML IV ONE (17:50)
[2018-05-24] MEDS ORDERED: TORADOL IV ONE (17:50)
[2018-05-24] MEDS ORDERED: CLEOCIN 900 MG/50 mL 900 MG/50 ML BAG IV ONE (17:51)
[2018-05-24] MEDS ORDERED: BACTRIM DS PO ONE (19:12)
[2018-05-24] MEDS ORDERED: MOTRIN PO ONE (19:12)
--- NOTE | 2018-05-24 19:49 | Emergency Department Report ---
HPI - General Chief Complaint: Weakness Time Seen by Provider: 05/24/18 17:43 - HPI HPI: 27-year-old male presents to the emergency department with a complaint of fever, generalized weakness, body aches. Patient says that it feels similar to a previous time where he had a cellulitis of his leg. He does also have some swelling and warmth to the right leg this time as well but he equates it to the shoes that he is wearing. He says that when he keeps the leg elevated that the swelling goes away but he does admit to some discomfort. He denies any headache, vision change, sore throat, ear pain, cough, shortness of breath, chest pain, abdominal pain, nausea or vomiting. He otherwise denies any other past medical history. No recent travel, recent surgery, recent immobility. He has not taken anything for his symptoms prior to presentation. He does not have a primary care physician. He denies any tobacco or illicit drug use or abuse. ED Past Medical Hx - Past Medical History Previous Medical History?: No - Surgical History Past Surgical History?: No - Social History Smoking Status: Never Smoker Substance Use Type: None - Medications Home Medications: Home Medications Medication Instructions Recorded Confirmed Last Taken Type Ibuprofen [Motrin] 800 mg PO Q8HR PRN #20 tablet 03/08/18 Unknown Rx Ciprofloxacin HCl [Ciprofloxacin 500 mg PO Q12H #20 tab 03/12/18 Unknown Rx TAB] Sulfamethoxazole/Trimethoprim 1 each PO BID #14 tablet 05/24/18 Unknown Rx [Bactrim DS TAB] ED Review of Systems ROS: Stated complaint: FEVER/BODY ACHES Other details as noted in HPI Constitutional: fever, weakness Eyes: denies: eye pain, eye discharge, vision change ENT: denies: ear pain, throat pain Respiratory: denies: cough, shortness of breath, wheezing Cardiovascular: edema (right leg). denies: chest pain, palpitations Gastrointestinal: denies: abdominal pain, nausea, diarrhea Genitourinary: denies: urgency, dysuria Musculoskeletal: myalgia. denies: back pain Skin: denies: rash, pruritus Neurological: denies: headache, numbness Physical Exam - Physical Exam Vital Signs: Vital Signs 05/24/18 05/24/18 05/24/18 14:38 18:24 18:31 Temperature 103 F H Pulse Rate 115 H 85 Respiratory 16 12 15 Rate Blood Pressure 130/75 O2 Sat by Pulse 96 Oximetry 05/24/18 05/24/18 05/24/18 18:45 19:01 19:15 Temperature Pulse Rate 76 91 H 84 Respiratory 17 27 H 18 Rate Blood Pressure 148/75 O2 Sat by Pulse Oximetry 05/24/18 19:21 Temperature 99.4 F Pulse Rate Respiratory Rate Blood Pressure O2 Sat by Pulse Oximetry Physical Exam: GENERAL: The patient is well-developed well-nourished. HENT: Normocephalic. Atraumatic. Patient has moist mucous membranes. Oropharynx is clear without tonsillar hypertrophy, erythema or exudates. EYES: Extraocular motions are intact. Pupils equal reactive to light bilaterally. NECK: Supple. Trachea is midline. CHEST/LUNGS: Clear to auscultation. There is no respiratory distress noted. HEART/CARDIOVASCULAR: Regular. There is no tachycardia. There is no murmur. ABDOMEN: Abdomen is soft, nontender. Patient has normal bowel sounds. Obese habitus. SKIN: Skin is warm and dry. The right lower extremity has some pitting edema to the foot and mid to distal tib-fib when compared to the left. It is slightly warm but there is no obvious erythema or thickening of the skin. NEURO: The patient is awake, alert, and oriented. The patient is cooperative. The patient has no focal neurologic deficits. The patient has normal speech and gait. MUSCULOSKELETAL: There is no tenderness or deformity. There is no limitation range of motion. There is no evidence of acute injury. ED Course Vital Signs 05/24/18 05/24/18 05/24/18 14:38 18:24 18:31 Temperature 103 F H Pulse Rate 115 H 85 Respiratory 16 12 15 Rate Blood Pressure 130/75 O2 Sat by Pulse 96 Oximetry 05/24/18 05/24/18 05/24/18 18:45 19:01 19:15 Temperature Pulse Rate 76 91 H 84 Respiratory 17 27 H 18 Rate Blood Pressure 148/75 O2 Sat by Pulse Oximetry 05/24/18 19:21 Temperature 99.4 F Pulse Rate Respiratory Rate Blood Pressure O2 Sat by Pulse Oximetry ED Medical Decision Making - Lab Data Result diagrams: 05/24/18 15:06 05/24/18 15:06 - EKG Data -: EKG Interpreted by Oh EKG shows normal: sinus rhythm, axis, intervals, QRS complexes, ST-T waves Rate: tachycardia (107 bpm) - EKG Data When compared to previous EKG there are: previous EKG unavailable Interpretation: other (sinus tachycardia) - Radiology Data Radiology results: image reviewed interpreted by me: Chest x-ray does not show any acute process. There are no pleural effusions, obvious pneumonia and there is no pneumothorax. - Medical Decision Making Patient presents with a complaint of a fever, body aches, generalized weakness. The patient was worked up through triage but included giving some Tylenol for his fever. Upon evaluation, the patient's fever has decreased and the tachycardia has resolved. There is no focus of fever seen on physical examination. Chest x-ray does not show any pneumonia, pleural effusion, focal consolidation or pneumothorax. On examination, the patient does appear to have some slight tenderness and swelling to the right lower extremity although it is not obvious for a cellulitis. Labs are mostly unremarkable except for a urinary tract infection and a mild leukocytosis. Patient was given some ibuprofen for discomfort and to help with the fever. He was given a dose of antibiotics for the urinary tract infection and possible cellulitis. The patient is feeling better and appears safe for discharge home at this time. He is going to be set up to return tomorrow morning for a venous Doppler ultrasound of the right lower extremity. If positive, he will be redirected to the emergency department to discuss anticoagulation. If negative, we discussed using Tylenol and ibuprofen to treat discomfort and fever. A urine culture has been sent. Patient has been given a referral for urology. He will return to the ER with any worsening of his symptoms or any acute distress. - Differential Diagnosis sepsis, UTI, cellulitis, DVT Critical Care Time: No Critical care attestation.: If time is entered above; I have spent that time in minutes in the direct care of this critically ill patient, excluding procedure time. ED Disposition Clinical Impression: Pain in right leg, Right leg swelling Fever Qualifiers: Fever type: unspecified Qualified Code(s): R50.9 - Fever, unspecified UTI (urinary tract infection) Qualifiers: Urinary tract infection type: acute cystitis Hematuria presence: with hematuria Qualified Code(s): N30.01 - Acute cystitis with hematuria Hematuria Qualifiers: Hematuria type: gross Qualified Code(s): R31.0 - Gross hematuria Disposition: TO HOME OR SELFCARE Is pt being admited?: No Condition: Stable Instructions: Urinary Tract Infection in Men (ED), Fever in Adults (ED), Acute Hematuria (ED), Arthralgia (ED) Additional Instructions: I'm giving you a referral for some local primary care physicians and clinics. I am also giving you a referral for a local urologist, Dr. Mcneill, to follow up regarding your urinary tract infection and the blood in the urine. Take the antibiotics as prescribed. You will be called tomorrow to come to return to the hospital for a right lower extremity venous Doppler ultrasound to rule out a blood clot as the source of your leg pain and swelling. If it is positive, you will be redirected to the emergency department to discuss treatment. If negative, continue with the previous plan of following up with primary care and urology. You can take Tylenol every 4 hours and ibuprofen every 6 hours, using weight- based dosing, as needed for fever or discomfort. Return to the emergency Department with any worsening of your symptoms or any acute distress. Prescriptions: Sulfamethoxazole/Trimethoprim [Bactrim DS TAB] 1 each PO BID #14 tablet Referrals: [facility] [Outside] - 3-5 Days EKTA ESPINOSA MD [Staff Physician] - 3-5 Days SANCHO MCNEILL MD [Staff Physician] - 3-5 Days PRIMARY MD SABRINA [Primary Care Provider] - 3-5 Days
[2018-05-24 19:50] VITALS: BP 147/75
== END 2018-05-24 20:37 | disposition home or self-care (01) ==
LOC: ED 14:18
DX: N30.01 Acute cystitis with hematuria (principal); M79.604 Pain in right leg; R50.9 Fever, unspecified; R22.41 Localized swelling, mass and lump, right lower limb
CPT/HCPCS: 36415; 71046; 80053; 81001; 82140; 82805; 85007; 85025; 85610; 87040; 87076; 87086; 87186; 93005; 93010

== ENCOUNTER 2019-02-13 11:57 | Emergency (ER) | payer OTHER ==
--- NOTE | 2019-02-13 12:22 | Emergency Department Report ---
Blank Doc - Documentation Documentation: This is a 28-year-old male that presents with generalized body aches and fatig ue. This initial assessment/diagnostic orders/clinical plan/treatment(s) is/are subject to change based on patient's health status, clinical progression and re- assessment by fellow clinical providers in the ED. Further treatment and workup at subsequent clinical providers discretion. Patient/guardians urged not to elope from the ED as their condition may be serious if not clinically assessed and managed. Initial orders include: 1- Patient sent to [facility] for further evaluation and treatment 2- labs 3- UA
[2019-02-13] MEDS ORDERED: TYLENOL PO ONE (12:56)
[2019-02-13 12:57] LABS: Hematocrit 41.6 % (35.5-45.6); Hemoglobin 14.4 gm/dl (11.8-15.2); Mean Corpuscular HGB Conc 35 % (32-34); Mean Corpuscular Volume 94 fl (84-94); Platelet Count 192 K/mm3 (140-440); Red Blood Count 4.42 M/mm3 (3.65-5.03); Red Cell Distribution Width 12.7 % (13.2-15.2)
--- NOTE | 2019-02-13 12:59 | Emergency Department Report ---
ED General Adult HPI - General Chief complaint: Pain General Stated complaint: BODY PAIN/FATIGUE/DIZZINESS Time Seen by Provider: 02/13/19 12:21 Source: patient Mode of arrival: Ambulatory Limitations: No Limitations - History of Present Illness Initial comments: Patient is 28 years old male with no significant past medical history. Patient presented to the ER complaining of generalized body ache since yesterday. Patient found to have a temperature of 100.4. Patient denied any cough, shortness of breath, abdominal pain, nausea or vomiting. Patient also denied any urinary symptoms except for increased frequency. Patient denied any headache, neck pain or neck rigidity. - Related Data Previous Rx's Medication Instructions Recorded Last Taken Type Ibuprofen [Motrin] 800 mg PO Q8HR PRN #20 tablet 03/08/18 Unknown Rx Ciprofloxacin HCl [Ciprofloxacin 500 mg PO Q12H #20 tab 03/12/18 Unknown Rx TAB] Sulfamethoxazole/Trimethoprim 1 each PO BID #14 tablet 05/24/18 Unknown Rx [Bactrim DS TAB] Allergies Allergy/AdvReac Type Severity Reaction Status Date / Time No Known Allergies Allergy Verified 05/24/18 14:37 ED Review of Systems ROS: Stated complaint: BODY PAIN/FATIGUE/DIZZINESS Other details as noted in HPI Comment: All other systems reviewed and negative Constitutional: fever. denies: chills Respiratory: denies: cough, orthopnea, shortness of breath, SOB with exertion Cardiovascular: denies: chest pain, palpitations Gastrointestinal: denies: abdominal pain, nausea, vomiting Musculoskeletal: arthralgia, myalgia Neurological: headache. denies: weakness, numbness, paresthesias, confusion, abnormal gait ED Past Medical Hx - Past Medical History Previous Medical History?: No - Surgical History Past Surgical History?: Yes Additional Surgical History: Right foot - Social History Smoking Status: Never Smoker Substance Use Type: None - Medications Home Medications: Home Medications Medication Instructions Recorded Confirmed Last Taken Type Ibuprofen [Motrin] 800 mg PO Q8HR PRN #20 tablet 03/08/18 Unknown Rx Ciprofloxacin HCl [Ciprofloxacin 500 mg PO Q12H #20 tab 03/12/18 Unknown Rx TAB] Sulfamethoxazole/Trimethoprim 1 each PO BID #14 tablet 05/24/18 Unknown Rx [Bactrim DS TAB] ED Physical Exam - General Limitations: No Limitations General appearance: alert, in no apparent distress - Head Head exam: Present: atraumatic, normocephalic, normal inspection - Eye Eye exam: Present: normal appearance - ENT ENT exam: Present: normal exam, normal orophraynx, mucous membranes moist - Neck Neck exam: Present: normal inspection, full ROM. Absent: tenderness, meningismus, lymphadenopathy, thyromegaly - Respiratory Respiratory exam: Present: normal lung sounds bilaterally - Cardiovascular Cardiovascular Exam: Present: regular rate, normal rhythm, normal heart sounds - GI/Abdominal GI/Abdominal exam: Present: soft, normal bowel sounds. Absent: distended, tenderness, guarding, rebound, rigid, mass, bruit, pulsatile mass, hernia - Extremities Exam Extremities exam: Present: normal inspection, full ROM, normal capillary refill - Back Exam Back exam: Present: normal inspection, full ROM. Absent: CVA tenderness (R), CVA tenderness (L), muscle spasm, paraspinal tenderness - Neurological Exam Neurological exam: Present: alert, oriented X3, CN II-XII intact, normal gait, reflexes normal - Psychiatric Psychiatric exam: Present: normal mood - Skin Skin exam: Present: warm, intact, normal color ED Course Vital Signs 02/13/19 02/13/19 02/13/19 12:21 12:57 13:01 Temperature 100.4 F H Pulse Rate 99 H Respiratory 16 16 17 Rate Blood Pressure 133/67 Blood Pressure [Right] O2 Sat by Pulse 99 Oximetry 02/13/19 14:12 Temperature 99.4 F Pulse Rate 75 Respiratory 16 Rate Blood Pressure Blood Pressure 101/71 [Right] O2 Sat by Pulse 100 Oximetry ED Medical Decision Making - Lab Data Result diagrams: 02/13/19 12:35 02/13/19 12:35 - Radiology Data Radiology results: report reviewed Referring Physician: JIN GRUBBS Patient Name: MAGNUS ELLIOTT Date of : 1990 Sex: Male Report Date: 2019-02-13 Report Status: Finalized Findings [address] [address] Cat Scan Report Signed Patient: MAGNUS ELLIOTT MR#: [id number] : 1990 Acct:[id number] Age/Sex: 28 / M ADM Date: 02/13/19 Loc: ED Attending Dr: Ordering Physician: JIN GRUBBS Date of Service: 02/13/19 Procedure(s): CT abdomen pelvis wo con Accession Number(s): [id number] cc: JIN GRUBBS PROCEDURE: CT ABDOMEN PELVIS WO CON HISTORY: ABDOMINAL PAIN FINDINGS: Unenhanced CT of the abdomen and pelvis was performed and data was reformatted in the sagittal and coronal planes. The heart is normal in size. The lung bases appear clear. ABDOMEN: The unenhanced liver, spleen, adrenal glands, pancreas, gallbladder are unremarkable. There is no renal or ureteral calculus. There is no small or large bowel obstruction. Pelvis: There is a normal appendix. There is no evidence of diverticulitis. The prostate and urinary bladder are within normal limits. There are several enlarged bilateral inguinal nodes without clear underlying etiology. Right lateral inguinal node on image 202 measures 2.0 x 1.5 cm. Right medial inguinal node also on image 202 measures 1.2 x 1.8 cm. Largest left inguinal node is on image 194, 1.2 x 2.0 cm. IMPRESSION: ABDOMEN: No renal or ureteral calculus Pelvis: Normal appendix Multiple enlarged bilateral inguinal nodes This document is electronically signed by Clarke Carrillo MD., February 13 2019 04:14:19 PM ET Transcribed By: JEET Dictated By: CLARKE CARRILLO MD Electronically Authenticated By: CLARKE CARRILLO MD Signed Date/Time: 02/13/191615 DD/ 160 TD/TT: 02/13/19 1602 - Medical Decision Making Patient is 28 years old male with no significant past medical history. Patient presented to the ER complaining of generalized body ache since yesterday. Patient found to have a temperature of 100.4. Patient denied any cough, shortness of breath, abdominal pain, nausea or vomiting. Patient also denied any urinary symptoms except for increased frequency. Patient denied any headache, neck pain or neck rigidity. Patient stated that he sitting much better after the Tylenol. Labs reviewed and show a white blood cells of 15,000. CT abdomen and pelvis showed a normal appendix. It also show a bilateral inguinal lymph nodes adenopathy. Urine is clear. Chest x-ray is unremarkable. No evidence of meningitis. Patient treated empirically with amoxicillin for possible lymphadenitis Patient advised to return to the ER if symptoms are not improved otherwise patient is to follow-up with his primary care physician in the next 2-3 days. Critical care attestation.: If time is entered above; I have spent that time in minutes in the direct care of this critically ill patient, excluding procedure time. ED Disposition Clinical Impression: Fever, Leukocytosis Disposition: DC-01 TO HOME OR SELFCARE Is pt being admited?: No Condition: Stable Instructions: Fever in Adults (ED) Referrals: PRIMARY CARE, [Referring] - 3-5 Days Forms: Work/School Release Form(ED)
[2019-02-13 13:12] LABS: BUN/Creatinine Ratio 11; Blood Urea Nitrogen 11 mg/dL (9-20); Hemolysis Index 15
[2019-02-13 13:59] LABS: Band Neutrophils # (Manual) 0.2 K/mm3; Basophils % (Manual) 0 % (0.0-1.8); Eosinophils % (Manual) 0 % (0.0-4.3); Monocytes % (Manual) 0 % (0.0-7.3); Total Cells Counted 100
[2019-02-13 14:00] LABS: Platelet Estimate Consistent w Auto; RBC Morphology Normal
[2019-02-13 14:13] VITALS: BP 101/71
[2019-02-13 14:16] LABS: Color,Urine Yellow (Yellow)
[2019-02-13 14:17] LABS: Bilirubin,Urine NEG (Negative); Blood,Urine NEG (Negative); Mucus,Urine 1+ /HPF; Protein,Urine <15 mg/dL mg/dL (Negative); Urobilinogen,Urine < 2.0 mg/dL (<2.0)
--- NOTE | 2019-02-13 15:05 | XRay Report ---
ROUTINE CHEST, TWO VIEWS: HISTORY: Fever. The trachea, heart, mediastinal contour, lung napoles and bony thorax are unremarkable. IMPRESSION: Unremarkable chest x-ray.
--- NOTE | 2019-02-13 16:16 | Cat Scan Report ---
PROCEDURE: CT ABDOMEN PELVIS WO CON HISTORY: ABDOMINAL PAIN FINDINGS: Unenhanced CT of the abdomen and pelvis was performed and data was reformatted in the sagittal and co julian planes. The heart is normal in size. The lung bases appear clear. ABDOMEN: The unenhanced liver, spleen, adrenal glands, pancreas, gallbladder are unremarkable. There is no anahi al or ureteral calculus. There is no small or large bowel obstruction. Pelvis: There is a normal appendix. There is no evidence of diverticulitis. The prostate and urinary bladder are within normal limits. There are several enlarged bilateral inguinal nodes without clear underlying etiology. Right lateral inguinal node on image 202 measures 2.0 x 1.5 cm. Right medial inguinal node also on image 202 measur es 1.2 x 1.8 cm. Largest left inguinal node is on image 194, 1.2 x 2.0 cm. IMPRESSION: ABDOMEN: No renal or ureteral calculus Pelvis: Normal appendix Multiple enlarged bilateral inguinal nodes This document is electronically signed by Clarke Carrillo MD., February 13 2019 04:14:19 PM ET
== END 2019-02-13 16:46 | disposition home or self-care (01) ==
LOC: ED 11:57
DX: D72.829 Elevated white blood cell count, unspecified (principal); R50.9 Fever, unspecified; M79.10 Myalgia, unspecified site; R59.0 Localized enlarged lymph nodes; Z79.1 Long term (current) use of non-steroidal anti-inflammatories (NSAID)
CPT/HCPCS: 36415; 71046; 74176; 80048; 81001; 85007; 85025; 99284